=== PATIENT | female | born 1995 | race American Indian/Alaskan Native ===

== ENCOUNTER 2018-03-06 19:04 | Emergency (ER) | payer SELFPAY ==
[2018-03-06 19:32] VITALS: BP 134/81
[2018-03-06 21:04] LABS: Bilirubin,Urine NEG (Negative); Blood,Urine NEG (Negative); Color,Urine Yellow (Yellow); Mucus,Urine 2+ /HPF; Protein,Urine <15 mg/dL mg/dL (Negative); WBC,Urine < 1.0 /HPF (0.0-6.0)
[2018-03-06 21:06] LABS: HCG Qualitative,Urine Negative (Negative); RBC,Urine < 1.0 /HPF (0.0-6.0)
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
--- NOTE | 2018-03-07 01:49 | XRay Report ---
FINAL REPORT EXAM: XR RIBS UNI W PA CHEST 3+V LT HISTORY: left chest/rib pain s/p fall TECHNIQUE: A PA view of the chest was obtained along with three views of the left ribs. FINDINGS: There is no evidence of acute left-sided rib fracture. The lungs are clear. Pleural fluid is not seen. There is no evidence of pneumothorax. The skeletal structures otherwise reveal an S-shaped thoracolumbar scoliosis. IMPRESSION: No evidence of acute left-sided rib fracture. S-shaped thoracolumbar scoliosis. No acute process in the chest
[2018-03-07] MEDS ORDERED: MOTRIN PO ONE (02:02)
== END 2018-03-07 03:09 | disposition home or self-care (01) ==
LOC: ED 19:04
DX: R07.81 Pleurodynia (principal); F17.200 Nicotine dependence, unspecified, uncomplicated
CPT/HCPCS: 81001; 81025; 99284